=== PATIENT | female | born 1975 | race Caucasian/White ===

== ENCOUNTER 2017-08-16 08:13 | Emergency (ER) | payer OTHER ==
[2017-08-16 08:24] VITALS: TEMP 97.6; BMI 26.6
[2017-08-16] MEDS ORDERED: ONDANSETRON 4 MG/2 ML VIAL IVPUSH ONE (08:53)
[2017-08-16] MEDS ORDERED: ACETAMINOPHEN 1000 MG/100 ML VIAL (NON FORMULARY) IVPB ONE (08:53)
[2017-08-16] MEDS ORDERED: SODIUM CHLORIDE 1,000 ML IV STA (08:53)
[2017-08-16] MEDS ORDERED: ONDANSETRON 4 MG/2 ML VIAL ONE (09:01)
[2017-08-16] MEDS ORDERED: ACETAMINOPHEN INJECTION 100 ML IVPB ONE (09:01)
--- NOTE | 2017-08-16 09:21 | PDOC ---
History of Present Illness - General Chief Complaint: Headache Stated Complaint: HEADACHE, VOMITING Time Seen by Provider: 08/16/17 08:35 History Source: Patient Exam Limitations: No Limitations - History of Present Illness Initial Comments: 08/16/17 09:16 42 y.o. 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 Patient states she woke up at 1 am with sudden, severe headache that was diffuse. Patient felt as if her head was going to explode. The headache was worst at the start. Patient took 1 oxycodone and vomited. Patient has had multiple episodes of emesis (>10) with nausea. Patient states this is way worse than her migraine headaches. She endorses photophobia, phonophobia, jerky vision , weakness, and minor neck pain. Patient denies fever, chills, diarrhea, constipation, chest pain, sob, slurred speech, dizziness, dysuria, hematuria. PSH: Cervical spine surgery All- Propoxyphene, clarithromycin SH- Denies PCP- Dr. La Nena Martinez--[facility] Past History - Past Medical History Allergies/Adverse Reactions: Allergies Allergy/AdvReac Type Severity Reaction Status Date / Time propoxyphene napsylate Allergy Severe Hives Verified 08/16/17 08:38 [From Darvocet-N 100] clarithromycin [From Biaxin] Allergy Verified 08/16/17 08:38 Home Medications: Ambulatory Orders NK [No Known Home Medication] 08/16/17 Other medical history: MIGRAINES - Surgical History Appendectomy: Yes Neurologic Surgery: Yes (c-spine) - Immunization History Immunization Up to Date: Yes - Suicide/Smoking/Psychosocial Hx Smoking Status: No Smoking History: Never smoked Have you smoked in the past 12 months: No Number of Cigarettes Smoked Daily: 0 Information on smoking cessation initiated: No Hx Alcohol Use: No Drug/Substance Use Hx: No Substance Use Type: None Review of Systems - Review of Systems Able to Perform ROS?: Yes Comments:: 08/16/17 09:18 GENERAL/CONSTITUTIONAL: No fever or chills. + weakness. HEAD, EYES, EARS, NOSE AND THROAT: +change in vision. No ear pain or discharge. No sore throat. +headache, No slurred speech CARDIOVASCULAR: No chest pain or shortness of breath RESPIRATORY: No cough, wheezing, or hemoptysis. GASTROINTESTINAL: + nausea, + vomiting, No diarrhea or constipation. GENITOURINARY: No dysuria, frequency, or change in urination. MUSCULOSKELETAL: No joint or muscle swelling or pain. No neck or back pain. SKIN: No rash NEUROLOGIC: + headache, No vertigo, loss of consciousness, or change in strength /sensation. ENDOCRINE: No increased thirst. No abnormal weight change HEMATOLOGIC/LYMPHATIC: No anemia, easy bleeding, or history of blood clots. ALLERGIC/IMMUNOLOGIC: No hives or skin allergy. *Physical Exam - Vital Signs Last Vital Signs Temp Pulse Resp BP Pulse Ox 97.6 F 80 18 124/76 100 08/16/17 08:22 08/16/17 08:22 08/16/17 08:22 08/16/17 08:22 08/16/17 08:22 - Physical Exam Comments: 08/16/17 09:19 GENERAL: Awake, alert, and fully oriented, in mild distress HEAD: No signs of trauma, normocephalic, atraumatic EYES: PERRLA, EOMI, sclera anicteric, conjunctiva clear ENT: Auricles normal inspection, hearing grossly normal, nares patent, oropharynx clear without exudates. Dry mucosa NECK: Normal ROM, supple, no lymphadenopathy, JVD, or masses LUNGS: No distress, speaks full sentences, clear to auscultation bilaterally HEART: Regular rate and rhythm, normal S1 and S2, no murmurs, rubs or gallops, peripheral pulses normal and equal bilaterally. ABDOMEN: Soft, nontender, normoactive bowel sounds. No guarding, no rebound. No masses EXTREMITIES: Normal inspection, Normal range of motion, no edema. No clubbing or cyanosis. NEUROLOGICAL: Cranial nerves II through XII grossly intact. Normal speech, 5/5 strength, sensation intact bilaterally, cerebellar intact bilaterally, no focal sensorimotor deficits SKIN: Warm, Dry, normal turgor, no rashes or lesions noted. Procedures - Lumbar Puncture Indication: Subarachnoid Hemmorhage CT Scan: Yes Betadine Prep: Yes Position: Left lateral decubitus Site: L3-L4 Local Anesthesia: 1% Lidocaine with epi Volume(ml): 3 Lumbar Puncture Kit: Adult Opening Pressure(mmHg): 15 Tubes Obtained: 4 Clear Fluid: Yes Complications: No ED Treatment Course - LABORATORY CBC & Chemistry Diagram: 08/16/17 09:15 08/16/17 09:15 Medical Decision Making - Medical Decision Making 08/16/17 09:21 42 y.o. 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 Differential: SAH vs Migraine Headache. Plan: CBC, CMP, EKG, Coags, Sx control, IVF, Head CT if serum preg negative. 08/16/17 12:15 CBC, CMP unremarkable Head CT negative for any bleed. Discussed risks with patient regarding LP. Patient wants to think about it and discuss with . 08/16/17 14:04 LP consented. LP performed with opening pressure of 15. No complications. pending CSF analysis 08/16/17 14:39 LP CSF unremarkable Patient stable for discharge. *DC/Admit/Observation/Transfer Diagnosis at time of Disposition: Headache Qualifiers: Headache type: unspecified Headache chronicity pattern: unspecified pattern Intractability: not intractable Qualified Code(s): R51 - Headache; R51 - Headache - Discharge Dispostion Disposition: HOME Condition at time of disposition: Stable - Referrals Referrals: La Nena Martinez MD [Primary Care Provider] - - Patient Instructions Printed Discharge Instructions: DI for Headache Additional Instructions: Follow up with your neurologist and primary care provider within 1 week. Take 2 extra strength tylenol up to 4 times per day for headache. (Maximum dose per day= 4 grams). If you have chest pain, shortness of breath, worsening headache, slurred speech , blurry vision, or any new/worsening symptoms please come back to the hospital immediately.
[2017-08-16 09:29] LABS: BASOPHIL 0.4 % (0-2.0); EOSINOPHIL 0.5 % (0-4.5); MCH 31.8 pg (25.7-33.7); MCHC 32.9 g/dl (32.0-36.0); MEAN CELL VOLUME 96.6 fl (80-96); MEAN PLT VOLUME 10.5 fl (7.5-11.1); NEUTROPHILS 78.2 % (42.8-82.8); PLATELET COUNT 204 K/MM3 (134-434); RDW 13.4 % (11.6-15.6); WHITE BLOOD COUNT 5.1 K/mm3 (4.0-10.0)
--- NOTE | 2017-08-16 09:42 | PDOC ---
Attending Attestation - Resident Resident Name: Allen Horner - ED Attending Attestation I have performed the following: I have examined & evaluated the patient, The case was reviewed & discussed with the resident, I agree w/resident's findings & plan, Exceptions are as noted - HPI HPI: 08/16/17 09:11 42yo F hx migraines, congenital vertebral fusion s/p surgery p/w sudden onset headache at 1am, 10/10 in severity, diffuse, since 2am then decreased in severity. Headache a/w innumerable episodes of NBNB emesis. +stiff neck, photophobia, phonophobia. Headache has now localized to her L taoism. Reports this is different than her usual migraine headache. Denies fevers, chills. Denies cp, sob, focal weakness or numbness. Denies rashes, dysuria. - Physicial Exam PE: 08/16/17 09:42 GENERAL: Awake, alert, and fully oriented, appears uncomfortable HEAD: No signs of trauma EYES: PERRLA, EOMI, sclera anicteric, conjunctiva clear ENT: Auricles normal inspection, hearing grossly normal, nares patent, oropharynx clear without exudates. Moist mucosa NECK: Normal ROM, supple, no lymphadenopathy, JVD, or masses LUNGS: Breath sounds equal, clear to auscultation bilaterally. No wheezes, and no crackles HEART: Regular rate and rhythm, normal S1 and S2, no murmurs, rubs or gallops ABDOMEN: Soft, nontender, normoactive bowel sounds. No guarding, no rebound. No masses EXTREMITIES: Normal range of motion, no edema. No clubbing or cyanosis. No cords, erythema, or tenderness NEUROLOGICAL: Normal speech, cranial nerves intact, negative pronator drift, 5/ 5 strength in all 4 extremities, normal sensation to light touch in all 4 extremities, normal cerebellar exam, normal gait, normal reflexes and tone SKIN: Warm, Dry, normal turgor, no rashes or lesions noted. - Medical Decision Making 08/16/17 09:42 42yo F hx migraines p/w WHOL. Vitals and exam unremarkable. DDx include SAH vs migraine vs tension olguin -labs -UPT -CTH -IVF/reglan/tylenol -reassess 08/16/17 14:48 CTH negative. LP performed under my supervision by Dr. Horner with no complications. LP with 3 RBCs in tube 1 and 1 RBC in tube 4, not consistent with SAH. Likely migraine as etiology of headache. Pt reports headache has greatly improved since it started. She requests to go home and will follow up with her neurologist in [facility]. I discussed the physical exam findings, ancillary test results and final diagnoses with the patient. I answered all of the patient's questions. The patient was satisfied with the care received and felt comfortable with the discharge plan and treatment plan. The patient will call their primary care physician within 24 hours to arrange follow-up and will return to the Emergency Department with any new, persistent or worsening symptoms. Heart Score/ECG Review #1 08/16/17 18:51 NSR, rate 69, normal axis and intevals, no JODIE. TW flattening in lead III
[2017-08-16 09:43] LABS: INR 1.01 (0.82-1.09); PROTHROMBIN TIME (PATIENT) 11.4 SEC (9.98-11.88)
[2017-08-16 09:46] LABS: ACTIVATED PTT 28.3 SECONDS (26.9-34.4)
[2017-08-16 09:53] LABS: ALBUMIN 3.6 g/dl (3.4-5.0); ALK PHOS 58 U/L (45-117); ANION GAP 6 (8-16); BILIRUBIN,TOTAL 0.5 mg/dL (0.2-1.0); CO2 29 mmol/L (21-32); CREATININE 0.7 mg/dL (0.55-1.02); GLUCOSE,RANDOM 98 mg/dL (74-106); SGOT/AST 16 U/L (15-37); SGPT/ALT 17 U/L (12-78); TOT PROT 7.1 g/dl (6.4-8.2)
[2017-08-16] MEDS ORDERED: SODIUM CHLORIDE 0.9% 500 ML INFUS.BAG IV ONE (10:24)
[2017-08-16] MEDS ORDERED: METOCLOPRAMIDE HCL INJECTION 10 MG/2 ML VIAL IVPUSH ONE (12:55)
[2017-08-16] MEDS ORDERED: METOCLOPRAMIDE HCL INJECTION 10 MG/2 ML VIAL ONE (14:01)
[2017-08-16 14:29] LABS: GLUCOSE,CSF 54 mg/dL (50-80)
[2017-08-16 14:33] LABS: CSF APPEARANCE CLEAR; CSF COLOR COLORLESS; CSF RBC 1; CSF RBC 3
[2017-08-16 15:26] VITALS: BP 123/69; PULSE 71
--- NOTE | 2017-08-17 12:49 | EKG ---
Test Reason : Blood Pressure : / mmHG Vent. Rate : 069 BPM Atrial Rate : 069 BPM P-R Int : 126 ms QRS Dur : 078 ms QT Int : 396 ms P-R-T Axes : -02 060 026 degrees QTc Int : 424 ms NORMAL SINUS RHYTHM NORMAL ECG NO PREVIOUS ECGS AVAILABLE Confirmed by JONY ADAMS MD ([id number]) on 08/17/2017 12:49:28 PM Referred By: Confirmed By:JONY ADAMS MD
== END 2017-08-16 15:26 | disposition home or self-care (01) ==
LOC: JER 08:13
PROC: 3E033NZ Introduction of Analgesics, Hypnotics, Sedatives into Peripheral Vein, Percutaneous Approach (ICD-10-PCS; principal; 2017-08-16)
PROC: 3E033GC Introduction of Other Therapeutic Substance into Peripheral Vein, Percutaneous Approach (ICD-10-PCS; 2017-08-16)
PROC: 3E0337Z Introduction of Electrolytic and Water Balance Substance into Peripheral Vein, Percutaneous Approach (ICD-10-PCS; 2017-08-16)
DX: R51 Headache (principal)
CPT/HCPCS: 36415; 70450-TC; 80053; 82945; 84157; 84703; 85025; 85610; 85730; 87070; 87205; 89050; 93005; 93010; 99285-25